=== PATIENT | male | born 1960 | race Caucasian/White ===

== ENCOUNTER 2016-05-31 19:33 | Emergency (ER) | payer OTHER ==
[~2016-05-31] VITALS: Ht 165.1 cm; Wt 88.5 kg
[~2016-05-31 19:33] MED LIST: ACET500C5 PO; CEPH-443 PO; IBUP-1542 PO
[2016-05-31 19:46] VITALS: Ht 165.1 cm; Wt 88.5 kg
--- NOTE | 2016-06-01 01:59 | ERD ---
ER Documentation Chief Complaint Date/Time DATE: 06/01/16 TIME: 01:51 Chief Complaint right eye pain x 1 day, denies any injury or exposure to eye HPI The patient is a 56-year-old male here with right eye redness, irritation, and purulent drainage since yesterday. He states that his eye feels irritated and that it lazaro. He denies any actual eyeball pain. He denies any eyeball pain with movement. He denies any eye injury, metalworking, woodworking, or any other possible exposure to foreign body . Denies any chemical eye injury. Denies visual changes. Reports that he also has a dry cough and a sore throat for the last 2 days. He denies any other symptoms or concerns at this time including, but not limited to fever, chills, nausea, vomiting, diarrhea, shortness of breath, chest pain, or headache. ROS All systems reviewed and are negative except as per history of present illness. Medications Home Meds Active Scripts Erythromycin* (Erythromycin* Ophthalmic) 1 Applic Oint, 1 APPLIC BOTH EYES QID for 7 Days, EA Prov:UMAIR LUGO NP 06/01/16 Acetaminophen* (Tylenol*) 325 Mg Tablet, 2 TAB PO Q6 Y for PAIN AND OR ELEVATED TEMP, #20 TAB Prov:UMAIR LUGO NP 06/01/16 Ibuprofen* (Motrin*) 600 Mg Tab, 600 MG PO Q6, #30 TAB Prov:SKYLA MORENO PA-C 03/13/16 Acetaminophen* (Tylophen*) 500 Mg Capsule, 1 CAP PO Q6H Y for PAIN AND OR ELEVATED TEMP, #15 CAP Prov:FUENTES CRUM MD 02/18/16 Cephalexin* (Keflex*) 500 Mg Capsule, 500 MG PO QID for 7 Days, CAP Prov:FUENTES CRUM MD 02/18/16 Allergies Allergies: Coded Allergies: No Known Allergy (Unverified , 02/22/16) PMhx/Soc History of Surgery: Yes (HERNIA) Anesthesia Reaction: No Hx Neurological Disorder: No Hx Respiratory Disorders: No Hx Cardiac Disorders: Yes (HTN; ) Hx Psychiatric Problems: No Hx Miscellaneous Medical Probl: Yes (CHOLESTEROL) Hx Alcohol Use: Yes (REGULAR DRINKER) Hx Substance Use: No Hx Tobacco Use: No Smoking Status: Never smoker Physical Exam Vitals Vital Signs Date Time Temp Pulse Resp B/P Pulse Ox O2 Delivery O2 Flow Rate FiO2 05/31/16 19:46 98.1 76 18 160/81 97 Physical Exam INITIAL VITAL SIGNS: Reviewed by me, afebrile GENERAL: Alert. Well developed and well nourished. No respiratory distress HEAD: Head is normocephalic. Atraumatic. EYES: EOMI. PERRL. Bilateral sclera injected. Right eye with moderate crusted drainage in each corner. No foreign body visualized in either eye. Visual acuity : OD: 20/40 OS: 20/40 OU: 20/30 ENT: External ears, nose, and mouth normal. Nasal passages patent. Moist mucous membranes. NECK: Supple. Full range of motion. Trachea midline. No lymphadenopathy. RESPIRATORY: No tachypnea. Clear to auscultation bilaterally. No wheezing, rales , or rhonchi. CV: Regular rate and rhythm. No murmurs, rubs, or gallops ABDOMEN: Soft, non-distended, non-tender. Normal bowel sounds in all quadrants. BACK: No CVA tenderness. Full ROM. EXTREMITIES: No obvious deformity. No clubbing or cyanosis. No edema. SKIN: Warm and dry. No diaphoresis. No obvious rashes or lesions. NEUROLOGIC: Alert and oriented x 3. Appropriate. Face is symmetric. Speech is normal. Moves all extremities equally. Procedures/MDM Nursing Notes Reviewed Previous Medical Records requested via [employer]. EMERGENCY DEPARTMENT COURSE / MEDICAL DECISION MAKING: The patient comes to the ED secondary to right eye redness, irritation, and crusting since yesterday. Sore throat and dry cough since yesterday. Differential diagnosis upon initial evaluation includes but is not limited to: Eye injury, foreign body, bacterial conjunctivitis, viral conjunctivitis, glaucoma, viral pharyngitis, bacterial pharyngitis, viral URI, and others. Final impression: 1. URI, likely viral 2. Conjunctivitis, likely viral The patient's HPI and physical examination are most consistent with viral conjunctivitis and viral URI. However, bacterial infection cannot be entirely ruled out and so he will be treated with erythromycin ointment. There was no evidence of foreign body in either eye. The patient did not have eyeball pain. His eye examination was benign. He did not have pain with movement of his eyes. He denied any foreign body or eye injury. Denied visual changes. He noticed his symptoms when he work up. Given this, I have low suspicion for eye injury, foreign body, glaucoma, or any other serious cause of eye discomfort. Based on patient's history of present illness and physical examination the decision was made to discharge. The patient was re-evaluated after ED treatment and stabilizing measures, and symptoms have improved. There is no evidence of life threatening injuries or illnesses at this time. On re-examination, patient resting in no distress, stable vital signs, reports feeling better and safe for discharge with outpatient follow up with PMD in 1-2 days. Patient given return precautions. Patient's blood pressure was elevated but appears stable without evidence of hypertensive emergency, end organ damage, chest pain or shortness of breath. The patient was counseled about the risks of untreated hypertension and urged to pursue outpatient monitoring and therapy in 2-3 days with their primary care physician. Prescriptions Erythromycin ophthalmic ointment Tylenol Chloraseptic [place] Departure Diagnosis: Primary Impression: Acute viral conjunctivitis of both eyes Additional Impression: URI (upper respiratory infection) URI type: unspecified viral URI Qualified Code: J06.9 - Viral upper respiratory tract infection Condition: Stable UMAIR LUGO NP Jun 01, 2016 01:59
[2016-06-01] MEDS ORDERED: ERYTOPOI BOTH EYES (02:43)
[2016-06-01] MEDS ORDERED: ACET325T33 PO (02:43)
== END 2016-06-01 03:00 | disposition home or self-care (01) ==
LOC: FTE 19:33
DX: H10.33 Unspecified acute conjunctivitis, bilateral (principal); J06.9 Acute upper respiratory infection, unspecified; I10 Essential (primary) hypertension
CPT/HCPCS: 99283